=== PATIENT | female | born 1975 | race Two or more races ===

== ENCOUNTER 2017-05-30 14:21 | Emergency (ER) | payer MEDICAID ==
[~2017-05-30] VITALS: Ht 154.9 cm; Wt 65.8 kg
[2017-05-30 15:09] VITALS: BP 139/77
== END 2017-05-30 16:07 | disposition home or self-care (01) ==
LOC: ER 14:21
DX: S93.401A Sprain of unspecified ligament of right ankle, initial encounter (principal); S39.012A Strain of muscle, fascia and tendon of lower back, initial encounter; S16.1XXA Strain of muscle, fascia and tendon at neck level, initial encounter; V43.62XA Car passenger injured in collision with other type car in traffic accident, initial encounter; Y93.89 Activity, other specified; Y92.488 Other paved roadways as the place of occurrence of the external cause; Y99.8 Other external cause status; Z88.6 Allergy status to analgesic agent
CPT/HCPCS: 73610

== ENCOUNTER 2018-11-26 09:44 | Emergency (ER) | payer SELFPAY ==
[~2018-11-26] VITALS: Ht 154.9 cm; Wt 70.3 kg
[2018-11-26 10:22] VITALS: BP 117/58
[2018-11-26] MEDS ORDERED: KETOROLAC TROMETH 60MG/2ML VIAL IM ONE (10:30)
== END 2018-11-26 11:25 | disposition home or self-care (01) ==
LOC: ER 09:44
DX: S39.012A Strain of muscle, fascia and tendon of lower back, initial encounter (principal); N39.0 Urinary tract infection, site not specified; Z88.1 Allergy status to other antibiotic agents; X50.1XXA Overexertion from prolonged static or awkward postures, initial encounter; Y93.89 Activity, other specified; Y99.8 Other external cause status; Y92.89 Other specified places as the place of occurrence of the external cause
CPT/HCPCS: 72100; 81002; 81025; 96372; 99283; J1885